=== PATIENT | male | born 1965 | race Hispanic/Latino ===

== ENCOUNTER → 2022-07-26 | Outpatient (CLI) | payer OTHER | END | disposition home or self-care (01) | LOC: EEVIPCON 10:41 → RAH 10:41 | PROVIDERS: ATTEND Family Medicine | DX: N43.2 Other hydrocele (principal); N50.82 Scrotal pain; K40.91 Unilateral inguinal hernia, without obstruction or gangrene, recurrent; R22.32 Localized swelling, mass and lump, left upper limb | CPT/HCPCS: 76882 ==